=== PATIENT | male | born 1980 | race Caucasian/White ===

== ENCOUNTER 2020-09-10 07:35 | Emergency (ER) | payer OTHER, SELFPAY ==
[2020-09-10] VITALS (15 sets, daily range): BP systolic 129–172; BP diastolic 72–103; PULSE 84–116; RESP 2–20; TEMP 35.7; O2SAT 93–100; BMI 58.6
--- NOTE | 2020-09-10 07:49 | DI.RAD.S_ITS ---
PROCEDURE: XR CHEST 1V INDICATIONS: chest pain TECHNIQUE: One view of the chest was acquired. COMPARISON: None. FINDINGS: Surgical changes and devices: None. Lungs and pleura: Lungs are clear. No pleural effusions or pneumothorax. Mediastinum: Mediastinal contours appear normal. Heart size is normal. Bones and chest wall: No suspicious bony lesions. Overlying soft tissues appear unremarkable. IMPRESSION: Normal for age, source of current chest pain symptoms is not seen. Dictated by: Talat Moran M.D. on 09/10/2020 at 8:19 Approved by: Talat Moran M.D. on 09/10/2020 at 8:20
--- NOTE | 2020-09-10 07:51 | ED.CHESTPAIN ---
HPI - Chest Pain General Chief Complaint: Chest Pain Stated Complaint: Tightness in chest Time Seen by Provider: 09/10/20 07:51 Source: patient Mode of arrival: Ambulatory History of Present Illness HPI narrative: 40-year-old gentleman with morbid obesity, reflux, ADHD, depression, seasonal allergies was driving to work this morning developing worsening symptoms that he initially attributed to his typical indigestion then continued to develop tightness over the entire anterior portion of his chest worse on the left than the right, mildly diaphoretic, mild nausea no palpitations and no radiating pain up to the neck or the arm but he became increasingly concerned and rather than continuing to work stopped at [facility] for further evaluation. 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 Related Data Allergies Allergy/AdvReac Type Severity Reaction Status Date / Time atomoxetine [From Strattera] AdvReac Fatigued Verified 09/10/20 07:47 Review of Systems Review of Systems Narrative: Pertinent positive and negative findings as per HPI Remainder of review of systems is otherwise unremarkable for Constitutional: Fevers, chills, weakness ENT: No sore throat, neck pain, ear pain CV: Chest pain, palpitations, dyspnea on exertion Respiratory: Cough, wheeze, dyspnea GI: vomiting, : Dysuria, hematuria, flank pain MS: Muscle weakness, numbness, joint swelling or warmth Skin: Rashes, nonhealing lesions Neuro: Syncope, dizziness, tingling Patient History Medical History Acid reflux Morbid obesity Seasonal allergies Tibia/fibula fracture Surgical History History of tonsillectomy and adenoidectomy History of tympanoplasty Social History Smoking Status: Never smoker Smoking Status: Never smoker Substance Use Type: does not use Exam Narrative Exam Narrative: General: Morbid obesity, mild anxiety but able to give a complete and coherent history. HEENT: Moist mucous membranes, normal sclera with reactive pupils, Neck: No JVD, supple Respiratory: Lungs are clear to auscultation, no wheezing no rales no rhonchi. Full and symmetrical air movement Cardiac: Mild tachycardia with Regular rate and rhythm no murmurs no bruits Abdomen: Soft, obese, nontender, good bowel tones, no flank pain Skin: Warm and dry, no rashes Neurologic: Grossly neurologically intact with no obvious asymmetries or abnormalities Extremities: No trauma, well perfused, no lower extremity edema Psych: Cooperative, appropriate insight and affect Initial Vital Signs Initial Vital Signs: Vital Signs Temperature 96.3 F L 09/10/20 07:44 Pulse Rate 116 H 09/10/20 07:44 Respiratory Rate 20 09/10/20 07:44 Blood Pressure 134/88 09/10/20 07:44 Pulse Oximetry 99 09/10/20 07:44 Course Orders Ordered: ED Orders 09/10/20 07:43 EKG-12 Lead Stat 09/10/20 07:49 XR chest 1V Stat 09/10/20 07:50 Complete Blood Count AUTO DIFF Stat Comprehensive Metabolic Panel Stat D Dimer Stat Lipase Stat Partial Thromboplastin Time Stat Prothrombin Time INR Stat Troponin & CK Cardiac Panel Stat 09/10/20 09:04 COVID19 Stat 09/10/20 10:08 Troponin I Stat Nitroglycerin (Nitroglycerin 0.4 Mg Sl Tab) 0.4 mg SL [id number] PRN PRN Reason: Chest Pain Last Admin: 09/10/20 08:14 Dose: 0.4 mg Documented by: CHANDU Discontinued Medications Aspirin (Aspirin 81 Mg Chew Tab) 324 mg PO NOW ONE Stop: 09/10/20 08:05 Last Admin: 09/10/20 08:14 Dose: 324 mg Documented by: CHANDU Metoprolol Tartrate (Metoprolol Tartrate 5 Mg/5 Ml Inj) 5 mg IV Q5M [facility] Stop: 09/10/20 08:41 Last Admin: 09/10/20 10:22 Dose: Not Given Documented by: Admin: 09/10/20 10:22 Dose: Not Given Documented by: Admin: 09/10/20 08:31 Dose: 5 mg Documented by: CHANDU Vital Signs Vital signs: Vital Signs - 8 hr 09/10/20 07:44 09/10/20 07:46 09/10/20 08:00 Temperature 96.3 F L Pulse Rate 116 H 111 H 104 H Respiratory Rate 20 Blood Pressure 134/88 172/103 H Pulse Oximetry 99 100 98 09/10/20 08:13 09/10/20 08:14 09/10/20 08:19 Temperature Pulse Rate 100 H 106 H 116 H Respiratory Rate 9 L 9 L Blood Pressure 153/85 H 153/85 H 129/72 Pulse Oximetry 96 98 09/10/20 08:30 09/10/20 08:38 09/10/20 09:00 Temperature Pulse Rate 93 H 86 89 Respiratory Rate 12 14 13 Blood Pressure 146/97 H 145/92 H 144/87 H Pulse Oximetry 96 96 97 09/10/20 09:30 09/10/20 10:00 09/10/20 10:30 Temperature Pulse Rate 90 84 92 H Respiratory Rate 14 16 17 Blood Pressure 156/94 H 156/100 H 146/81 H Pulse Oximetry 97 93 95 09/10/20 11:00 09/10/20 11:30 Temperature Pulse Rate 87 93 H Respiratory Rate 11 L 13 Blood Pressure 133/76 Pulse Oximetry 97 95 MDM - Chest Pain Medical Records Data Attestation: I reviewed the patient's medical records. Lab Data Attestation: I reviewed the patient's lab results. Result diagrams: 09/10/20 07:50 09/10/20 07:50 Labs: Lab Results 09/10/20 09/10/20 09/10/20 Range/Units 07:50 07:50 07:50 WBC 7.2 (4.5-11.0) X10^3/uL RBC 5.23 (4.5-5.9) X10^6/uL Hgb 13.6 (13.5-17.5) g/dL Hct 41.5 (41-53) % MCV 79.4 L (80-100) fL MCH 26.0 (26-34) PG MCHC 32.8 (30-36) % RDW 14.2 (11.6-14.8) % Plt Count 259 (150-400) X10^3/uL Neut % (Auto) 63.4 (50-75) % Lymph % (Auto) 24.7 L (25-40) % [place] % (Auto) 8.4 (3-14) % Eos % (Auto) 2.8 (2-4) % Baso % (Auto) 0.7 (0-2) % Neut # (Auto) 4500 (9863-2395) /uL Lymph # (Auto) 1800 (0187-4006) /uL [place] # (Auto) 600 (0-900) /uL Eos # (Auto) 200 (0-450) /uL Baso # (Auto) 0 (0-100) /uL PT 11.8 (10.1-12.7) SECONDS INR 1.0 (0.9-1.3) APTT 38 H (26.4-36.2) SECONDS D-Dimer (<230) ng/mL Sodium 137 (137-145) mmol/L Potassium 4.0 (3.4-5.1) mmol/L Chloride 102 (98-107) mmol/L Carbon Dioxide 29 (22-32) mmol/L BUN 18 (9-20) mg/dL Creatinine 1.07 (0.66-1.25) mg/dL Estimated GFR > 60.0 (>60) mL/min BUN/Creatinine Ratio 16.8 (6-22) Glucose 125 H (70-100) mg/dL Calcium 8.8 (8.4-10.2) mg/dL Total Bilirubin 0.4 (0.2-1.3) mg/dL AST 24 (17-59) IU/L ALT 31 (<50) IU/L Alkaline Phosphatase 82 (38-126) U/L Total Creatine Kinase 130 (55-170) U/L CK-MB (CK-2) 0.54 (<2.37) ng/mL CK-MB (CK-2) Rel Index 0.4 L (1.5-5.0) % Troponin I < 0.012 (0.01-0.034) ng/mL Total Protein 8.1 (6.3-8.2) g/dL Albumin 4.3 (3.5-5.0) g/dL Globulin 3.8 (1.7-4.1) g/dL Albumin/Globulin Ratio 1.1 (1.0-2.8) Lipase 125 (23-300) U/L COVID-19 PCR (Negative) 09/10/20 09/10/20 09/10/20 Range/Units 07:50 09:04 10:08 WBC (4.5-11.0) X10^3/uL RBC (4.5-5.9) X10^6/uL Hgb (13.5-17.5) g/dL Hct (41-53) % MCV (80-100) fL MCH (26-34) PG MCHC (30-36) % RDW (11.6-14.8) % Plt Count (150-400) X10^3/uL Neut % (Auto) (50-75) % Lymph % (Auto) (25-40) % [place] % (Auto) (3-14) % Eos % (Auto) (2-4) % Baso % (Auto) (0-2) % Neut # (Auto) (4137-7895) /uL Lymph # (Auto) (9015-3433) /uL [place] # (Auto) (0-900) /uL Eos # (Auto) (0-450) /uL Baso # (Auto) (0-100) /uL PT (10.1-12.7) SECONDS INR (0.9-1.3) APTT (26.4-36.2) SECONDS D-Dimer < 200 (<230) ng/mL Sodium (137-145) mmol/L Potassium (3.4-5.1) mmol/L Chloride (98-107) mmol/L Carbon Dioxide (22-32) mmol/L BUN (9-20) mg/dL Creatinine (0.66-1.25) mg/dL Estimated GFR (>60) mL/min BUN/Creatinine Ratio (6-22) Glucose (70-100) mg/dL Calcium (8.4-10.2) mg/dL Total Bilirubin (0.2-1.3) mg/dL AST (17-59) IU/L ALT (<50) IU/L Alkaline Phosphatase (38-126) U/L Total Creatine Kinase (55-170) U/L CK-MB (CK-2) (<2.37) ng/mL CK-MB (CK-2) Rel Index (1.5-5.0) % Troponin I < 0.012 (0.01-0.034) ng/mL Total Protein (6.3-8.2) g/dL Albumin (3.5-5.0) g/dL Globulin (1.7-4.1) g/dL Albumin/Globulin Ratio (1.0-2.8) Lipase (23-300) U/L COVID-19 PCR Negative (Negative) Imaging Data Chest x-ray: Radiologist's Impression: FINDINGS: Surgical changes and devices: None. Lungs and pleura: Lungs are clear. No pleural effusions or pneumothorax. Mediastinum: Mediastinal contours appear normal. Heart size is normal. Bones and chest wall: No suspicious bony lesions. Overlying soft tissues appear unremarkable. IMPRESSION: Normal for age, source of current chest pain symptoms is not seen. Dictated by: Talat Moran M.D. on 09/10/2020 at 8:19 ECG Data Attestation: I personally reviewed and interpreted this ECG as follows: Interpretation: Sinus tach at 1:11 a.m. Normal intervals, normal axis No ST T wave or acute ischemic changes MDM Narrative Medical decision making narrative: Chest pain/discomfort resolved with the nitroglycerin. Still slightly tachycardic and hypertensive which has resolved nicely with the IV metoprolol. Initial blood work including troponin is unremarkable. EKG and chest x-ray equally unremarkable. Given his risk factors will repeat troponin at 2 hours. He is continuing to complain of mild diaphoresis, will do a COVID test as well. 40-year-old gentleman now asymptomatic. Labs are reassuring with a normal EKG initial and repeat troponin unremarkable. No evidence of pulmonary embolism, pneumonia, cardiomegaly, congestive heart failure, pneumothorax. I suspect that his reflux and perhaps esophageal spasm are contributing to the symptoms he was experiencing today. I will suggest outpatient follow-up in he likely will benefit from nuclear medicine stress testing for further cardiac risk stratification. He is safe for home discharge at this time Discharge Plan Departure Patient Disposition: Home Clinical Impression: Atypical chest pain Instructions: DI for Atypical Chest Pain Activity Restrictions/Additional Instructions: Thank you for coming in today Your workup today was very reassuring. I did not find any evidence of heart attack or heart attack like syndrome. There is no blood clots in your lungs, no collapsed lungs, no enlarged heart, no fluid collecting in your lungs, pneumonia or COVID. At this point the most likely explanation for the sensations you are having today relate to your stomach and esophagus and the reflux that you do have. I would recommend that you follow-up with your primary care physician and you may be an excellent candidate for outpatient nuclear medicine stress testing to help further risk stratify your likelihood of cardiovascular disease. Please continue all of your current medications. If you have recurrent symptoms, it would be very appropriate to return to the emergency room for further evaluation Referrals: Mandi Houser ARNP, [employer] [Primary Care Provider] -
[2020-09-10 07:59] LABS: Add Manual Diff / Slide Review NO; Basophils Absolute Auto 0 /uL (0-100); Basophils Percent Auto 0.7 % (0-2); Eosinophils Absolute Auto 200 /uL (0-450); Eosinophils Percent Auto 2.8 % (2-4); Hematocrit 41.5 % (41-53); Hemoglobin 13.6 g/dL (13.5-17.5); Lymphocytes Absolute Auto 1800 /uL (1100-4500); Lymphocytes Percent Auto 24.7 % (25-40); Mean Corpuscular HGB Conc 32.8 % (30-36); Mean Corpuscular Volume 79.4 fL (80-100); Monocytes Absolute Auto 600 /uL (0-900); Monocytes Percent Auto 8.4 % (3-14); Neutrophils Absolute Auto 4500 /uL (1500-7000); Neutrophils Percent Auto 63.4 % (50-75); Platelet Count 259 X10^3/uL (150-400); Red Blood Cell Count 5.23 X10^6/uL (4.5-5.9); Red Cell Distribution Width 14.2 % (11.6-14.8); White Blood Cell Count 7.2 X10^3/uL (4.5-11.0)
--- NOTE | 2020-09-10 08:04 | PC.NURSE ---
Patient reports chest tightness while driving. Does not feel like his typical indigestion pain. [place] relief when got up out of car to stand, creating more space. Some SOB noted, patient labored while walking to room, more than normal.
[2020-09-10 08:05] LABS: Prothrombin Time 11.8 SECONDS (10.1-12.7)
[2020-09-10 08:06] LABS: Alanine Aminotransferase 31 IU/L (<50); Albumin 4.3 g/dL (3.5-5.0); Albumin Globulin Ratio 1.1 (1.0-2.8); Alkaline Phosphatase 82 U/L (38-126); Aspartate Aminotransferase 24 IU/L (17-59); BUN Creatinine Ratio 16.8 (6-22); Bilirubin Total 0.4 mg/dL (0.2-1.3); Blood Urea Nitrogen 18 mg/dL (9-20); Calcium 8.8 mg/dL (8.4-10.2); Carbon Dioxide 29 mmol/L (22-32); Chloride 102 mmol/L (98-107); Creatine Kinase 130 U/L (55-170); D Dimer < 200 ng/mL (<230); Estimated Glomerular Filt Rate > 60.0 mL/min (>60); Globulin 3.8 g/dL (1.7-4.1); Glucose 125 mg/dL (70-100); HEMOLYSIS < 15 (0-50); Lipase 125 U/L (23-300); PTT Partial Thromboplastin Tim 38 SECONDS (26.4-36.2); Sodium 137 mmol/L (137-145); Total Protein 8.1 g/dL (6.3-8.2)
[2020-09-10] MEDS: NITROGLYCERIN 0.4 MG SL TAB SL (08:14)
[2020-09-10] MEDS: ASPIRIN 81 MG CHEW TAB 324 MG PO (08:14)
[2020-09-10 08:18] LABS: Troponin I < 0.012 ng/mL (0.01-0.034)
[2020-09-10 08:21] LABS: CKMB % Relative Index 0.4 % (1.5-5.0); Creatine Kinase MB 0.54 ng/mL (<2.37)
--- NOTE | 2020-09-10 08:21 | PC.NURSE ---
patient reports improvement in chest tightness 12/04 to 10/06. Discussed with Dr Serna, will order Metoprolol. Hold off on additional nitro at this time.
[2020-09-10] MEDS: METOPROLOL TARTRATE 5 MG/5 ML INJ IV (08:31)
[2020-09-10 09:24] LABS: COVID19 -Nasal RAPID Negative (Negative)
[2020-09-10 10:40] LABS: Troponin I < 0.012 ng/mL (0.01-0.034)
== END 2020-09-10 12:23 | disposition home or self-care (01) ==
PROVIDERS: Emergency Provider Emergency Medicine; PCP Nurse Practitioner Family
DX: R07.89 Other chest pain (principal); R00.0 Tachycardia, unspecified; E66.01 Morbid (severe) obesity due to excess calories; Z68.43 Body mass index [BMI] 50.0-59.9, adult; K21.9 Gastro-esophageal reflux disease without esophagitis; F90.9 Attention-deficit hyperactivity disorder, unspecified type
CPT/HCPCS: 36415; 71045; 80053; 82550; 82553; 83690; 84484; 85025; 85379; 85610; 85730; 87635; 93005; 99284

== ENCOUNTER 2021-07-21 20:33 | Emergency (ER) | payer OTHER, SELFPAY ==
[2021-07-21 20:35] VITALS: BP 188/95; PULSE 95; RESP 16; TEMP 36.8; O2SAT 98; BMI 59.4
--- NOTE | 2021-07-21 21:00 | PC.NURSE ---
in room with Pt
[2021-07-21 21:13] LABS: Add Manual Diff / Slide Review NO; Basophils Absolute Auto 100 /uL (0-100); Basophils Percent Auto 0.7 % (0-2); Eosinophils Absolute Auto 0 /uL (0-450); Eosinophils Percent Auto 0.4 % (2-4); Hematocrit 38.3 % (41-53); Hemoglobin 12.9 g/dL (13.5-17.5); Lymphocytes Absolute Auto 1800 /uL (1100-4500); Lymphocytes Percent Auto 22.9 % (25-40); Mean Corpuscular HGB Conc 33.7 % (30-36); Mean Corpuscular Hemoglobin 26.2 PG (26-34); Mean Corpuscular Volume 77.6 fL (80-100); Monocytes Absolute Auto 600 /uL (0-900); Monocytes Percent Auto 7.9 % (3-14); Neutrophils Absolute Auto 5400 /uL (1500-7000); Neutrophils Percent Auto 68.1 % (50-75); Platelet Count 247 X10^3/uL (150-400); Red Blood Cell Count 4.94 X10^6/uL (4.5-5.9); Red Cell Distribution Width 15.2 % (11.6-14.8); White Blood Cell Count 7.9 X10^3/uL (4.5-11.0)
[2021-07-21 21:24] LABS: Salicylate < 1.0 mg/dL (<20)
[2021-07-21 21:25] LABS: Acetaminophen < 10 ug/mL (10-30); Alanine Aminotransferase 38 IU/L (<50); Albumin 4.3 g/dL (3.5-5.0); Albumin Globulin Ratio 1.4 (1.0-2.8); Alkaline Phosphatase 78 U/L (38-126); Aspartate Aminotransferase 30 IU/L (17-59); BUN Creatinine Ratio 9.6 (6-22); Bilirubin Total 0.5 mg/dL (0.2-1.3); Blood Urea Nitrogen 10 mg/dL (9-20); Calcium 9.3 mg/dL (8.4-10.2); Carbon Dioxide 26 mmol/L (22-32); Chloride 100 mmol/L (98-107); Estimated Glomerular Filt Rate > 60.0 mL/min (>60); Ethanol (ETOH) < 10 mg/dL; Glucose 93 mg/dL (70-100); HEMOLYSIS < 15 (0-50); Lipase 57 U/L (23-300); Potassium 3.6 mmol/L (3.4-5.1); Sodium 136 mmol/L (137-145); Total Protein 7.3 g/dL (6.3-8.2)
[2021-07-21 21:38] LABS: COVID19 -Nasal RAPID Negative (Negative)
[2021-07-21 22:33] LABS: Appearance Urine UA CLEAR; Bilirubin Urine UA NEGATIVE (NEGATIVE); Color Urine UA YELLOW; Glucose Urine UA NEGATIVE (Negative); Ketones Urine UA 1+ (NEGATIVE); Leukocyte Esterase Urine UA NEGATIVE (NEGATIVE); Nitrite Urine UA NEGATIVE (Negative); Occult Blood Urine UA NEGATIVE (Negative); Protein Urine UA NEGATIVE (Negative); Urobilinogen Urine UA 0.2 E.U./dL (0.2); pH Urine UA 5.5 (4.5-8.0)
[2021-07-21 22:39] LABS: UR Morphine/Opiate cutoff 300 Negative (Negative); Ur Creatinine 20 (Normal); Urine Amphetamines Positive (Negative); Urine Barbiturates Negative (Negative); Urine Benzodiazepines Negative (Negative); Urine Cocaine Negative (Negative); Urine MDMA Negative (Negative); Urine Methadone Negative (Negative); Urine Methamphetamines Negative (Negative); Urine Oxycodone Negative (Negative); Urine Phencyclidine Negative (Negative); Urine Tetrahydrocannabinol Negative (Negative); Urine Tricyclic Antidepressant Negative (Negative); Urine pH 5.5 (Normal)
[2021-07-21 22:44] LABS: Bacteria Urine None Seen; Culture Indicated Urine Cult Not Indicated; RBC Urine None Seen (0-5/HPF); WBC Urine None Seen (0-5/HPF)
--- NOTE | 2021-07-21 22:48 | PC.NURSE ---
Pt was given string cheese, pudding, apple sauce, apple juice, and a can of chicken noodle soup.
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
--- NOTE | 2021-07-22 00:38 | PC.NURSE ---
pt resting quietly. got up to use the restroom
[2021-07-22 08:00] VITALS: BP 151/70; PULSE 82; RESP 16; O2SAT 98
--- NOTE | 2021-07-22 09:47 | PC.NURSE ---
Patient's helped them to the bathroom and then we moved them to a new room (13) and removed all ligatures for safety.
--- NOTE | 2021-07-22 10:15 | PC.NURSE ---
Patient asked permission to take morning medications-okayed by . Fluoxetine, omeprazole, vyvanse.
--- NOTE | 2021-07-22 10:34 | PC.NURSE ---
Pt is sitting up in bed and talking to the ED MATERIALS AND PROCESSES MANAGER.
--- NOTE | 2021-07-22 11:08 | PC.NURSE ---
Patient is sitting up in bed and using his phone. He calm and compliant at this time.
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
--- NOTE | 2021-07-22 13:06 | CM.SWNOTE ---
IOS PROGRAMMER Note IOS PROGRAMMER calls patient's therapist with [facility] Louisa Fisher (Ph. # [phone]) IOS PROGRAMMER left requesting return call. IOS PROGRAMMER calls [facility] for bed census. IOS PROGRAMMER calls [facility], they have beds and IOS PROGRAMMER faxes clinicals for review. IOS PROGRAMMER calls [facility] intake, they have beds, IOS PROGRAMMER faxes clinicals for review. IOS PROGRAMMER receives calls from [facility], It is reported that patient is accepted at any time today by ED provider Dr. Walker, [employer] sets up EMS transportation. Plan: Patient to transfer to [facility] today for hospitalization. ERNESTINA Bee
--- NOTE | 2021-07-22 14:47 | PC.NURSE ---
kaz nurse at [facility]; report given [phone]
[2021-07-22 14:54] VITALS: BP 141/72; PULSE 98; RESP 20; TEMP 36.8; O2SAT 96
== END 2021-07-22 15:05 ==
PROVIDERS: Emergency Medicine; Emergency Provider Emergency Medicine; PCP Nurse Practitioner Family
DX: R45.851 Suicidal ideations (principal); Z20.822 Contact with and (suspected) exposure to COVID-19
CPT/HCPCS: 36415; 80053; 80305; 80320; 80329; 81001; 83690; 84443; 85025; 87635; 99284; C9803; G0480